=== PATIENT | female | born 1995 | race Caucasian/White ===

== ENCOUNTER 2016-07-15 23:35 | Emergency (ER) | payer BC, OTHER ==
[2016-07-15] MEDS ORDERED: Diphtheria,Pertussis(Acell),Tetanus Vaccine 0.5 ML SDV IM ONE (23:51)
[2016-07-15 23:52] VITALS: BP 127/92
--- NOTE | 2016-07-15 23:57 | EDM.PDOC ---
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 Has a flap laceration to the tip of finger. active bleeding was controlled with pressure. bandage applied. request to have Td checked. Onset: Sudden Duration: Hour(s): Location: Reports: Other (right upper finger) Quality: Reports: Burning Severity: Mild Improves with: Reports: Other (pressure and bandage) Worsens with: Reports: Movement Associated Symptoms: Reports: No Other Symptoms Treatments [employer]IAN: Reports: Other (see below) (pressure to site and bandage.) - Related Data Allergies Allergy/AdvReac Type Severity Reaction Status Date / Time No Known Allergies Allergy Verified 07/15/16 23:55 Home Meds: Home Meds Cetirizine [ZyrTEC] 10 mg PO DAILY PRN 01/15/15 [History] Multivitamin with Minerals [Multiple Vitamin] 1 tab PO DAILY 01/15/15 [History] buPROPion HCl [Wellbutrin Xl] 1 tab PO DAILY 07/15/16 [History] Past Medical History - Past Surgical History Other HEENT Surgeries/Procedures: WISDOM TEETH Social & Family History - Tobacco Use Smoking Status *Q: Never Smoker - Recreational Drug Use Recreational Drug Use: No - Living Situation & Occupation Occupation: Employed ([employer] employee) ED ROS GENERAL - Review of Systems Review Of Systems: See Below Constitutional: Reports: Other (finger pain) Skin: Reports: Other (laceration to right middle finger) ED EXAM, SKIN/RASH Exam: See Below Exam Limited By: No Limitations Skin: Warm, Wound/Incision (flap type laceration to tip of right middle finger. minor bleeding controlled with pressure) ED SKIN PROCEDURES - Laceration/Wound Repair Right Finger Lac/wound length in cm: 0.5 (flap type) Appearance: superficial Distal NVT: neuro & vascular intact, no tendon injury Closed with: steri-strips Complications: No Complication Description: steri-strip and bandage applied. Tdap 0.5ml given in ER. report made to Employee Health for injury on the job Course - Vital Signs Last Recorded V/S: Last Vital Signs Temp 37.1 C 07/15/16 23:59 Pulse 85 07/15/16 23:59 Resp 18 07/15/16 23:59 BP 127/92 H 07/15/16 23:59 Pulse Ox 97 07/15/16 23:59 - Orders/Labs/Meds Orders: Active Orders 24 hr Category Date Time Status Vaccines to be Administered [RC] PER UNIT ROUTINE Care 07/15/16 23:51 Active Meds: Medications Discontinued Medications Generic Name Dose Route Start Last Admin Trade Name Freq PRN Reason Stop Dose Admin Diphtheria/Tetanus/Acell Pertussis 0.5 ml 07/15/16 23:51 07/15/16 23:57 Adacel IM 07/15/16 23:52 0.5 ml .ONCE ONE Administration Departure - Departure Time of Disposition: 00:14 Disposition: Home, Self-Care 01 Condition: good Clinical Impression: Broken skin - Discharge Information Instructions: Laceration Care, Adult Referrals: Gretel Manuel PA [Primary Care Provider] - Forms: ED Department Discharge Care Plan Goals: broken skin, on the job injury -steri strip applied to right middle finger -Tdap IM given in ER -apply antibiotic ointment to wound two times a day for 3 days then keep clean and dry -return to Clinic, Urgent Care or ER for any increased pain, bleeding, discharge , fever, chills, edema or not improved - Problem List & Annotations (1) Immunization, tetanus-diphtheria SNOMED Code(s): 580136502 Code(s): Z23 - ENCOUNTER FOR IMMUNIZATION Status: Acute Priority: High (2) Broken skin SNOMED Code(s): 456716350 Code(s): R23.8 - OTHER SKIN CHANGES Status: Acute Priority: High - Problem List Review Problem List Initiated/Reviewed/Updated: Yes - My Orders Last 24 Hours: My Active Orders 07/15/16 23:51 Vaccines to be Administered [RC] PER UNIT ROUTINE - Assessment/Plan Last 24 Hours: My Active Orders 07/15/16 23:51 Vaccines to be Administered [RC] PER UNIT ROUTINE Plan: broken skin, on the job injury -steri strip applied to right middle finger -Tdap IM given in ER -apply antibiotic ointment to wound two times a day for 3 days then keep clean and dry -return to Clinic, Urgent Care or ER for any increased pain, bleeding, discharge , fever, chills, edema or not improved
== END 2016-07-16 00:14 | disposition home or self-care (01) ==
LOC: JP.ED 23:35
DX: S61.212A Laceration without foreign body of right middle finger without damage to nail, initial encounter (principal); Z79.899 Other long term (current) drug therapy; W26.8XXA Contact with other sharp object(s), not elsewhere classified, initial encounter
CPT/HCPCS: 90471; 90715; 99283-25